=== PATIENT | female | born 1960 | race Caucasian/White ===

== ENCOUNTER 2016-12-30 14:54 | Emergency (ER) | payer BC ==
[~2016-12-30] VITALS: Ht 167.6 cm; Wt 81.8 kg
[~2016-12-30 14:54] MED LIST: CELEBREX 200MG200 MG PO; CLINDAMYCIN HC300 MG PO; DICLOFENAC50 MG PO; DILAUDID 2MG TAB2 MG PO; FOLIC ACID PO; KLONOPIN 0.5MG0.5 MG PO; MVI PO; OXYCODONE HCL5 MG PO; PRILOSEC 20MG20 MG PO; PROZAC 20MG20 MG PO; SEE INSTRUCTIONS IT; TRANDATE 100MG100 MG PO; TYLENOL 500MG500 MG PO
[2016-12-30 14:58] VITALS: TEMP 98.4
[2016-12-30 17:51] LABS: BASO # 0.1 (0.0-0.2); BASO % 0.6 % (0.0-2.0); EOS % 0.1 % (0-4.0); GRAN # 6.3 (1.4-6.5); HEMATOCRIT 41.7 % (37.0-47.0); HEMOGLOBIN 13.7 g/dl (12.5-16.0); LYMPH # 1.6 (1.2-3.4); LYMPH % 18.6 % (20.0-51.0); MEAN CELL VOLUME 95 fl (80.0-100.0); MEAN CORPUSCULAR HEMOGLOBIN 31 pg (27.0-31.0); MEAN CORPUSCULAR HGB CONC 33 g/dl (33.0-37.0); MONO # 0.5 (0.1-0.6); MONO % 5.3 % (1.7-9.3); PLATELET COUNT 243 K/mm3 (130-400); RED BLOOD COUNT 4.41 M/mm3 (4.10-5.30); REDCELL DISTRIBUTION WIDTH-CV 12.6 % (11.5-14.5); WHITE BLOOD COUNT 8.4 K/mm3 (4.8-10.8)
[2016-12-30 17:57] LABS: PH 6 (5-8); SQUAMOUS EPITHELIAL None Seen /hpf; URINE APPEARANCE Clear; URINE BACTERIA Rare /hpf; URINE BILIRUBIN Negative (NEGATIVE); URINE BLOOD 2+ (NEGATIVE); URINE COLOR Yellow; URINE GLUCOSE Negative (NEGATIVE); URINE KETONE Negative (NEGATIVE); URINE UROBILINOGEN Negative (NEGATIVE); URINE WBC 0-2 /hpf
[2016-12-30 18:16] LABS: ADJUSTED CALCIUM 9.3 mg/dL (8.4-10.2); ALANINE AMINOTRANSFERASE 24 U/L (9-52); ALBUMIN 4.5 gm/dL (3.5-5.0); ALKALINE PHOSPHATASE 103 U/L (50-136); ANION GAP 13 mmol/L (7-16); BILIRUBIN,TOTAL 1.1 mg/dL (0.0-1.0); BLOOD UREA NITROGEN 10 mg/dL (7-17); CALCIUM 9.7 mg/dL (8.4-10.2); CARBON DIOXIDE 23 mmol/L (22-30); CHLORIDE 109 mmol/L (98-107); GLUCOSE 111 mg/dL (74-106); POTASSIUM 3.6 mmol/L (3.4-5.0); SODIUM 144 mmol/L (137-145); TOTAL PROTEIN 7.9 gm/dL (6.4-8.2)
[2016-12-30 18:17] LABS: C-REACTIVE PROTEIN < 0.5 mg/dL (0.0-0.9)
[2016-12-30] MEDS ORDERED: BACTRIM DS 8001 TAB PO (18:58)
[2016-12-30 19:28] VITALS: BP 162/75; PULSE 90
== END 2016-12-30 19:29 | disposition home or self-care (01) ==
LOC: COL.ER 14:54
PROVIDERS: Nurse Practitioner
DX: R51 Headache (principal); R11.0 Nausea; R42 Dizziness and giddiness; I10 Essential (primary) hypertension; F17.210 Nicotine dependence, cigarettes, uncomplicated
CPT/HCPCS: J1100; J1885; J2405; J7030

== ENCOUNTER → 2019-03-13 | Outpatient (CLI) | payer BC ==
[~2019-03-13] MED LIST changes: +BACTRIM DS 8001 TAB PO
== END ==
LOC: MC.RAD 09:42
DX: Z12.31 Encounter for screening mammogram for malignant neoplasm of breast (principal)

== ENCOUNTER → 2020-05-14 | Outpatient (CLI) | payer BC | LOC: COL.RAD | DX: M48.061 Spinal stenosis, lumbar region without neurogenic claudication (principal); M51.36 Other intervertebral disc degeneration, lumbar region; G57.22 Lesion of femoral nerve, left lower limb ==

== ENCOUNTER → 2020-05-27 | Outpatient (CLI) | payer BC | LOC: ZCOL.LAB 18:49 | DX: Z20.828 Contact with and (suspected) exposure to other viral communicable diseases (principal) ==

== ENCOUNTER → 2020-07-01 | Outpatient (CLI) | payer BC | LOC: ZLAB.KSTAT 16:12 | DX: R05 Cough (principal); Z20.828 Contact with and (suspected) exposure to other viral communicable diseases ==

== ENCOUNTER → 2020-08-20 | Outpatient (CLI) | payer BC | LOC: COL.PUL 07:40 | DX: R06.09 Other forms of dyspnea (principal); F17.200 Nicotine dependence, unspecified, uncomplicated ==

== ENCOUNTER 2021-03-09 09:41 | Emergency (ER) | payer BC ==
[~2021-03-09] VITALS: Ht 165.1 cm; Wt 90.9 kg
[2021-03-09 09:54] VITALS: BP 169/83; TEMP 98.3
[2021-03-09] MEDS ORDERED: FLEXERIL 1010 MG/TAB PO (10:23)
[2021-03-09] MEDS ORDERED: PREDNISONE20 MG PO (10:23)
[2021-03-09 10:53] VITALS: PULSE 93
== END 2021-03-09 10:53 | disposition home or self-care (01) ==
LOC: COL.ER 09:41
DX: M25.552 Pain in left hip (principal); M54.17 Radiculopathy, lumbosacral region; J44.9 Chronic obstructive pulmonary disease, unspecified; I10 Essential (primary) hypertension; G89.29 Other chronic pain; M54.9 Dorsalgia, unspecified; F17.290 Nicotine dependence, other tobacco product, uncomplicated; Z88.6 Allergy status to analgesic agent; Z88.1 Allergy status to other antibiotic agents; Z79.891 Long term (current) use of opiate analgesic; Z79.899 Other long term (current) drug therapy
CPT/HCPCS: J7512

== ENCOUNTER 2021-06-03 10:06 | Day surgery (SDC) | payer BC ==
[~2021-06-03] VITALS: Ht 165.2 cm; Wt 93.0 kg
[2021-06-03] VITALS (15 sets, daily range): BP systolic 125–181; BP diastolic 71–98; PULSE 81–97; TEMP 98.6
[~2021-06-03 10:06] MED LIST changes: +FLEXERIL 1010 MG/TAB PO; +PREDNISONE20 MG PO
[2021-06-03] MEDS ORDERED: ASPIRIN E.C. 8181 MG PO (10:51)
[2021-06-03] MEDS ORDERED: PROZAC 20MG20 MG PO (10:51)
[2021-06-03] MEDS ORDERED: PRIL40 PO (10:52)
[2021-06-03 11:05] LABS: HEMOGLOBIN 11.4 g/dl (12.5-16.0); MEAN CELL VOLUME 92 fl (80.0-100.0); MEAN CORPUSCULAR HEMOGLOBIN 30 pg (27.0-31.0); MEAN CORPUSCULAR HGB CONC 33 g/dl (33.0-37.0); MEAN PLATELET VOLUME 9.8 fl (7.4-10.4); PLATELET COUNT 269 K/mm3 (130-400); RED BLOOD COUNT 3.81 M/mm3 (4.10-5.30)
[2021-06-03 11:13] LABS: HEMATOCRIT 35.1 % (37.0-47.0)
[2021-06-03 11:16] LABS: INR 1.2 (0.8-3.0); PROTHROMBIN TIME 13.1 SECONDS (9.7-12.8)
[2021-06-03 11:19] LABS: PARTIAL THROMBOPLASTIN TIME 29.3 SECONDS (26.0-37.0)
[2021-06-03] MEDS ORDERED: COZAAR 50MG50 MG/TAB PO (11:22)
[2021-06-03] MEDS ORDERED: TIAZAC180 MG PO (11:23)
[2021-06-03] MEDS ORDERED: VOLTAREN SR25 MG/TAB PO (11:23)
[2021-06-03 11:24] LABS: CREATININE, serum 0.73 mg/dL (0.57-1.11); POTASSIUM 4.1 mmol/L (3.5-4.5)
[2021-06-03] MEDS ORDERED: PROAIR HFA0.09 MG/AC IH (11:24)
[2021-06-03] MEDS ORDERED: DALIRESP500 MCG PO (11:24)
[2021-06-03] MEDS ORDERED: ASMANEX HF100 MCG/Ac IH (11:25)
--- NOTE | 2021-06-03 11:42 | NUR ---
SEE MERGE FOR ALL MEDICATION ADMINISTRATION TIMES INTRA AND POST SEDATION ASSESSMENTS
[2021-06-03] MEDS ORDERED: IMDUR 30MG30 MG/TAB PO (13:49)
--- NOTE | 2021-06-03 17:11 | NUR ---
Dressing to R groin, DCI, band removed from R wrist, covered with gauze and coband. Discussed discharge instruction with patient, she is aware of new med needing to be picked up at the pharmacy. She verbalized understanding of instructions, denied having questions. Monitors removed, IV DCd intact, patient changed into clothes, Escorted from unit via wheelchair.
== END 2021-06-03 17:31 ==
LOC: COL.CAR 10:06
PROVIDERS: Internal Medicine Cardiovascular Disease
DX: I25.10 Atherosclerotic heart disease of native coronary artery without angina pectoris (principal); I27.20 Pulmonary hypertension, unspecified; R94.39 Abnormal result of other cardiovascular function study; R60.0 Localized edema; I10 Essential (primary) hypertension; Z20.822 Contact with and (suspected) exposure to COVID-19; Z79.82 Long term (current) use of aspirin; Z79.899 Other long term (current) drug therapy; Z79.891 Long term (current) use of opiate analgesic; Z87.891 Personal history of nicotine dependence; Z80.0 Family history of malignant neoplasm of digestive organs
CPT/HCPCS: C1769; C1887; C1894; J0153; J1644; J2250; J3010